=== PATIENT | male | born 2000 | race Caucasian/White ===

== ENCOUNTER 2024-02-16 14:55 | Emergency (ER) | payer SELFPAY | END 2024-02-16 15:42 | disposition home or self-care (01) | LOC: JP.ED 14:55 | DX: K04.7 Periapical abscess without sinus (principal); F17.210 Nicotine dependence, cigarettes, uncomplicated | CPT/HCPCS: 99282; 99283 ==

== ENCOUNTER 2024-05-15 18:02 | Emergency (ER) | payer MEDICAID | END 2024-05-15 19:00 | disposition left against medical advice (07) | LOC: JP.ED 18:02 | DX: Z53.21 Procedure and treatment not carried out due to patient leaving prior to being seen by health care provider (principal) ==